=== PATIENT | female | born 1985 | race African-American/Black ===

== ENCOUNTER 2022-10-17 17:41 | Emergency (ER) | payer MEDICAID, OTHER ==
[~2022-10-17] VITALS: Ht 160 cm; Wt 127.0 kg
[2022-10-17 18:00] VITALS: BP 144/83
[2022-10-17] MEDS ORDERED: ACETAMINOPHEN 325MG TABLET PO ONE (23:00)
[2022-10-18] MEDS ORDERED: TC1U15 TP (00:13)
== END 2022-10-18 00:49 | disposition home or self-care (01) ==
LOC: ER 17:41
DX: N64.4 Mastodynia (principal); F41.9 Anxiety disorder, unspecified
CPT/HCPCS: 71045; 99283